=== PATIENT | male | born 1990 | race American Indian/Alaskan Native ===

== ENCOUNTER 2017-11-13 21:48 | Emergency (ER) | payer SELFPAY ==
[2017-11-13 22:19] VITALS: BP 119/82
[2017-11-13] MEDS ORDERED: TYLENOL ONE (22:19)
[2017-11-13] MEDS ORDERED: TYLENOL PO ONE (22:30)
--- NOTE | 2017-11-14 | Cat Scan Report ---
FINAL REPORT PROCEDURE: CT head without contrast. TECHNIQUE: Computerized tomography of the head was performed without contrast material. HISTORY: Headache. COMPARISON: No prior studies are available for comparison. FINDINGS: The ventricles are normal in size. The fernando matter and white matter appear normal. There are no mass lesions. There is no intracranial hemorrhage. The calvarium appears intact. The mastoid air cells and paranasal sinuses are clear as far as visualized. IMPRESSION: Normal study.
[2017-11-14] MEDS ORDERED: BENADRYL IV ONE (03:50)
[2017-11-14] MEDS ORDERED: REGLAN IV ONE (03:50)
[2017-11-14] MEDS ORDERED: TORADOL IM ONE (03:50)
--- NOTE | 2017-11-14 03:52 | Emergency Department Report ---
ED Headache HPI - General Chief Complaint: Headache Stated Complaint: FEVER, HEADACHE, DIZZY Time Seen by Provider: 11/14/17 02:35 - History of Present Illness Initial Comments: 27-year-old -[place] male comes in current pain of fever headache and dizziness 4 days. Patient denies any injury to his head. He reports that he gets nausea and vomiting when he eats. He denies any change of vision denies any photophobia denies any trauma to the head. He reports he has a subjective fever is had night sweats 2 days ago. Patient reports that he feels weak. He took Motrin on Saturday which is only 200 mg to continue the a.m. and p.m. He denies any recent trauma denies any recent travels denies being around any sick contacts. He works at a factory. Timing/Duration: other (4 days) Quality: throbbing Head Injury Location: frontal, occipital Recent Head Trauma: no recent headache/trauma Modifying Factors: worse with: cold therapy, exposure to light Associated Symptoms: nausea/vomiting Allergies/Adverse Reactions: Allergies nut - unspecified Allergy (Verified 11/13/17 22:20) Rash Home Medications: Ambulatory Orders Aspirin/Acetaminophen/Caffeine [Excedrin Migraine Caplet] 1 each PO Q8H #30 tablet 11/14/17 ED Review of Systems ROS: Stated complaint: FEVER, HEADACHE, DIZZY Other details as noted in HPI Constitutional: denies: chills, fever Eyes: eye pain (pain in the back of the eyes) ENT: denies: ear pain, throat pain Respiratory: cough (yesterday) Endocrine: no symptoms reported Gastrointestinal: nausea, vomiting Genitourinary: denies: urgency, dysuria Musculoskeletal: denies: back pain, joint swelling, arthralgia Skin: denies: rash, lesions Neurological: headache Psychiatric: denies: anxiety, depression ED Past Medical Hx - Past Medical History Previous Medical History?: No - Surgical History Past Surgical History?: No - Social History Smoking Status: Never Smoker Substance Use Type: None - Medications Home Medications: Home Medications Medication Instructions Recorded Confirmed Last Taken Type Aspirin/Acetaminophen/Caffeine 1 each PO Q8H #30 tablet 11/14/17 Unknown Rx [Excedrin Migraine Caplet] ED Physical Exam - General Limitations: No Limitations General appearance: alert, in no apparent distress - Head Head exam: Present: atraumatic, normocephalic - ENT ENT exam: Present: mucous membranes moist - Neck Neck exam: Present: normal inspection, full ROM. Absent: lymphadenopathy - Cardiovascular Cardiovascular Exam: Present: regular rate, normal rhythm. Absent: systolic murmur, diastolic murmur, rubs, gallop - Expanded Neurological Exam Expanded Cranial nerves: EOM's Intact: Normal, Gag Reflex: Normal, Tongue Deviation: Normal, Nystagmus: Normal, Facial Sensation: Normal, Facial Palsy with Forehead Movement: Normal, Facial Palsy without Forehead Movement: Normal Cerebellar function: Finger to Nose: Normal, Heel to [place]: Normal, Romberg: Normal Upper motor neuron: Salas Neglect: Normal, Pronator Drift: Normal Sensory exam: Upper Extremity Pin Prick: Normal, Upper Extremity Temperature: Normal, UE 2 Point Discrimination: Normal, Lower Extremity Temperature: Normal, LE 2 Point Discrimination: Normal Motor strength exam: RUE: 4, LUE: 4, RLE: 4 Best Eye Response (Charlie): (4) open spontaneously Best Motor Response ([employer]): (6) obeys commands Best Verbal Response ([place]): (5) oriented [employer] Total: 15 - Psychiatric Psychiatric exam: Present: normal affect, normal mood - Skin Skin exam: Present: warm, dry, intact, normal color. Absent: rash ED Course Vital Signs 11/13/17 11/13/17 22:12 22:32 Temperature 98 F Pulse Rate 65 Respiratory 14 18 Rate Blood Pressure 119/82 O2 Sat by Pulse 96 Oximetry - Reevaluation(s) Reevaluation #1: 11/14/17 04:09 Patient reports headache feels much better after having injections. ED Medical Decision Making - Radiology Data Radiology results: report reviewed, image reviewed FINAL REPORT PROCEDURE: CT head without contrast. TECHNIQUE: Computerized tomography of the head was performed without contrast material. HISTORY: Headache. COMPARISON: No prior studies are available for comparison. FINDINGS: The ventricles are normal in size. The fernando matter and white matter appear normal. There are no mass lesions. There is no intracranial hemorrhage. The calvarium appears intact. The mastoid air cells and paranasal sinuses are clear as far as visualized. IMPRESSION: Normal study. Transcribed By: MRM Dictated By: JARRED SLATER MD Electronically Authenticated By: JARRED SLATER MD Signed Date/Time: [id number] DD/ 56 TD/TT: 11/13/172356 - Medical Decision Making Patient has been evaluated by this provider in fast track. CT ordered and completed with normal examination. Patient has been given Tylenol in triage. We will place an IV. Patient Benadryl and Toradol and Reglan for headache. Plan discharge patient to follow up with their primary care provider. Patient verbalized understanding Critical care attestation.: If time is entered above; I have spent that time in minutes in the direct care of this critically ill patient, excluding procedure time. ED Disposition Clinical Impression: Headache Qualifiers: Headache type: unspecified Headache chronicity pattern: acute headache Intractability: intractable Qualified Code(s): R51 - Headache Disposition: TO HOME OR SELFCARE Is pt being admited?: No Does the pt Need Aspirin: No Condition: Stable Instructions: Acute Headache (ED) Additional Instructions: Please take pain medication as prescribed. If symptoms persists or gets worse please follow-up with the primary care provider. Prescriptions: Aspirin/Acetaminophen/Caffeine [Excedrin Migraine Caplet] 1 each PO Q8H #30 tablet Referrals: PRIMARY CAREMD [Primary Care Provider] - 3-5 Days [facility] [Provider Group] - 3-5 Days Forms: Work/School Release Form(ED)
== END 2017-11-14 04:10 | disposition home or self-care (01) ==
LOC: ED 21:48
DX: R51 Headache (principal); R50.9 Fever, unspecified; R42 Dizziness and giddiness; Z91.018 Allergy to other foods
CPT/HCPCS: 70450; 96372; 96374; 96375; 99283; J1200; J1885; J2765